=== PATIENT | male | born 1955 | race Caucasian/White ===

== ENCOUNTER 2019-10-12 06:38 | Inpatient (IN) ==
[~2019-10-12 06:38] MED LIST: Lactated Ringers 1000 ml BAG 1,000 ML IV SCH
[2019-10-12] MEDS ORDERED: ceFAZolin 2 GM PREMIX in ORs 2 GM/50 ML BAG ONE (07:48)
[2019-10-12] MEDS ORDERED: Insulin REGULAR 100 unit/ml(*) ONE (08:17)
[2019-10-12] MEDS ORDERED: Midazolam 2 mg/2 ml VIAL 1 mg/ml 2 ml VIAL (2 mg) ONE (08:40)
[2019-10-12] MEDS ORDERED: fentaNYL 100 mcg/2 ml 50 MCG/ML VIAL ONE ×2 (08:40→12:57)
[2019-10-12] MEDS ORDERED: Propofol 10 MG/ML 20 ML BTL ONE (08:41)
[2019-10-12] MEDS ORDERED: Succinylcholine 200 mg VIAL 20 mg/ml 10 ml VIAL (200 mg) ONE (08:44)
[2019-10-12] MEDS ORDERED: Glycopyrrolate IV 0.2 MG/ML 1 ML VIAL ONE (08:44)
[2019-10-12] MEDS ORDERED: Rocuronium 50 mg VIAL 10 mg/ml 5 ml VIAL (50 mg) ONE ×2 (08:45→10:37)
[2019-10-12] MEDS ORDERED: Phenylephrine 40 mcg/mL 10mL (400mcg) SYRINGE ONE ×3 (08:46→10:18)
[2019-10-12] MEDS ORDERED: Esmolol 10 MG/ML 10 ML (100 mg) ONE (08:46)
[2019-10-12] MEDS ORDERED: EPHEDrine (Pressors) 50 MG/ML VIAL ONE ×2 (09:23→10:19)
[2019-10-12] MEDS ORDERED: Dexamethasone IV 4 MG/ML VIAL 1 ml VIAL ONE (10:13)
[2019-10-12] MEDS ORDERED: Ondansetron 4 mg VIAL 2 MG/ML 2 ml VIAL ONE (10:13)
[2019-10-12] MEDS ORDERED: Sugammadex 500 MG/5 ML 5 ml VIAL IV PUSH ONE (11:06)
[2019-10-12] MEDS ORDERED: Naloxone 0.4 mg VIAL 0.4 mg/ml 1 ml VIAL IV PRN (11:14)
[2019-10-12] MEDS ORDERED: Ondansetron 4 mg VIAL 2 MG/ML 2 ml VIAL IV PRN ×2 (11:14→12:01)
[2019-10-12] MEDS ORDERED: Magnesium Hydroxide LIQ 30 ML UDC PO PRN (12:01)
[2019-10-12] MEDS ORDERED: oxyCODONE/Acetamin 5/325 mg TAB PO PRN (12:01)
[2019-10-12] MEDS ORDERED: diPHENhydraMINE 25 mg TAB PO PRN (12:01)
[2019-10-12] MEDS ORDERED: Ondansetron ODT 4 mg TAB 4 MG TAB PO PRN (12:01)
[2019-10-12] MEDS ORDERED: Lactulose 30 ml UDC PO PRN (12:01)
[2019-10-12] MEDS ORDERED: diPHENhydraMINE IV 50 MG/ML 1 ml VIAL (BENADRYL) IV PRN (12:01)
[2019-10-12] MEDS: fentaNYL 100 mcg/2 ml 50 MCG/ML VIAL IV PRN ×2 (12:58→13:14)
[2019-10-12] MEDS ORDERED: Lactated Ringers 1000 ml BAG 1,000 ML IV SCH (13:00)
[2019-10-12] MEDS ORDERED: Dextrose 50% Syringe 50 ml 25 GM/50 ML SYRINGE IV PUSH PRN (13:28)
[2019-10-12] MEDS ORDERED: Insulin GLARGINE 100 un/ml (*) 10 ml VIAL SUBCUT ONE (17:25)
[2019-10-12] MEDS: ceFAZolin 1 GM ADVAN(*) 1 GM in NS 0.9% 50 ML 50 ML IVPB SCH (18:04)
[2019-10-12] MEDS: Insulin LISPRO 100 units/ml(*) SUBCUT SCH ×2 (18:06→22:11)
[2019-10-12] MEDS: oxyCODONE/Acetamin 5/325 mg TAB PO PRN (21:25)
[2019-10-12] MEDS: Magnesium Hydroxide LIQ 30 ML UDC PO SCH (21:25)
[2019-10-13] MEDS: ceFAZolin 1 GM ADVAN(*) 1 GM in NS 0.9% 50 ML 50 ML IVPB SCH ×2 (01:00→09:33)
[2019-10-13] MEDS: oxyCODONE/Acetamin 5/325 mg TAB PO PRN ×2 (03:50→12:05)
[2019-10-13 05:51] LABS: Hematocrit 39 % (42-52); Hemoglobin 12.9 g/dL (14.0-18.0); Mean Platelet Volume 9.5 fL (7.4-10.4); Platelet Count 147 10^3/uL (150-450)
[2019-10-13 06:08] LABS: BUN/Creatinine Ratio 28.3 (8-20); Calcium 7.9 mg/dL (8.6-10.3); EGFR African American 84.6 (>60); EGFR Non-African American 69.9 (>60); Potassium 4.2 mmol/L (3.5-5.0)
[2019-10-13] MEDS ORDERED: Vitamin THERAPEUTIC TAB PO SCH (09:00)
[2019-10-13] MEDS ORDERED: Insulin GLARGINE 100 un/ml (*) 10 ml VIAL SUBCUT SCH (09:00)
[2019-10-13] MEDS: Insulin LISPRO 100 units/ml(*) SUBCUT SCH ×2 (09:36→12:04)
[2019-10-13] MEDS: Magnesium Hydroxide LIQ 30 ML UDC PO SCH (09:40)
[2019-10-13 11:38] VITALS: BP 120/59
== END 2019-10-13 15:18 | disposition home or self-care (01) | DRG 470 ==
LOC: AA 06:38 → SSU 12:02
PROVIDERS: ADMIT Orthopaedic Surgery Adult Reconstructive Orthopaedic Surgery; ATTEND Orthopaedic Surgery Adult Reconstructive Orthopaedic Surgery